=== PATIENT | male | born 1940 | race Caucasian/White ===

== ENCOUNTER 2016-06-07 10:55 | Observation (INO) | payer MEDICARE, OTHER ==
[2016-06-07] MEDS ORDERED: NITROGLYCERIN OINT 1 INCH/GM PACKET TOPICAL STA (11:26)
--- NOTE | 2016-06-07 11:27 | ED ---
General Adult HPI - General Chief complaint: Chest Pain Stated complaint: Chest Pain Time Seen by Provider: 06/07/16 11:00 Source: patient, RN notes reviewed Mode of arrival: EMS Limitations: no limitations - History of Present Illness Initial comments: This 76-year-old male with past medical history significant for bypass surgery back in 1995 per patient also states he had an [place] has high cholesterol and high blood pressure. Patient states early this morning started having some chest pain and some difficulty breathing. When EMS arrived they gave the patient a nitroglycerin which took his pain away completely. Patient currently states he has a 1 out of 10 pain at this time. Patient does not know if this pain feels like his previous heart attack pain because he cannot remember what that felt like. Patient denies any recent fever or chills. Patient states she was recently admitted to the hospital for pneumonia and discharged. Patient denies any palpitations. Patient denies abdominal pain patient denies nausea vomiting or diarrhea. Patient denies any headache patient denies any numbness or weakness. Patient denies any lightheadedness or dizziness or near syncopal episode. - Related Data Home Medications Medication Instructions Recorded Confirmed ALPRAZolam [Xanax] 0.5 mg PO QID 02/13/15 06/07/16 DULoxetine HCL [Cymbalta] 60 mg PO DAILY 02/13/15 06/07/16 Memantine [Namenda] 10 mg PO BID@0700,1700 02/13/15 06/07/16 Simvastatin [Zocor] 80 mg PO HS 02/13/15 06/07/16 traMADol HCl [Ultram] 50 mg PO Q6H PRN 02/13/15 06/07/16 Acetaminophen [Tylenol] 650 mg PO Q4H PRN 06/07/16 06/07/16 Bisacodyl [Dulcolax] 10 mg RECTAL DAILY PRN 06/07/16 06/07/16 Budesonide/Formoterol Fumarate 2 puff INHALATION RT-BID@0800,1700 06/07/1606/07 [Symbicort 160-4.5 Mcg Inhaler] Carvedilol [Coreg] 3.125 mg PO BID@0800,1700 06/07/16 06/07/16 Donepezil [Aricept] 10 mg PO HS 06/07/16 06/07/16 Ergocalciferol [Vitamin D2] 50,000 unit PO Q30D@1700 06/07/16 06/07/16 Famotidine [Pepcid] 20 mg PO BID@0800,1700 06/07/16 06/07/16 Furosemide [Lasix] 20 mg PO DAILY@0800 06/07/16 06/07/16 Ipratropium-Albuterol Nebulize 3 ml INHALATION RT-Q6H 06/07/16 06/07/16 [Duoneb 0.5 mg-3 mg/3 ml Soln] Magnesium Hydroxide [Milk of 2,400 mg PO DAILY PRN 06/07/16 06/07/16 Magnesia] Melatonin 5 mg PO HS 06/07/16 06/07/16 Na Phos,M-B/Na Phos,Di-Ba [Fleet 133 ml RECTAL DAILY PRN 06/07/16 06/07/16 Adult] Potassium Chloride [Klor-Con 10] 10 meq PO DAILY@0800 06/07/16 06/07/16 Allergies Allergy/AdvReac Type Severity Reaction Status Date / Time aspirin Allergy Unknown Verified 06/07/16 12:18 Review of Systems ROS Statement: Those systems with pertinent positive or pertinent negative responses have been documented in the HPI. ROS Other: All systems not noted in ROS Statement are negative. Past Medical History Past Medical History: Coronary Artery Disease (CAD), Chest Pain / Angina, COPD, Hyperlipidemia, Hypertension, Myocardial Infarction ([place]) Additional Past Medical History / Comment(s): ANEURYSM, History of Any Multi-Drug Resistant Organisms: None Reported Past Surgical History: Coronary Bypass/CABG Additional Past Surgical History / Comment(s): NECK SURGERY Past Psychological History: Anxiety, Depression Smoking Status: Current every day smoker Past Alcohol Use History: None Reported Past Drug Use History: None Reported General Exam - General Exam Comments Initial Comments: GENERAL: Patient is well-developed and well-nourished. Patient is nontoxic and well- hydrated and is in mild distress. ENT: Neck is soft and supple. No significant lymphadenopathy is noted. Oropharynx is clear. Moist mucous membranes. Neck has full range of motion without eliciting any pain. EYES: The sclera were anicteric and conjunctiva were pink and moist. Extraocular movements were intact and pupils were equal round and reactive to light. Eyelids were unremarkable. PULMONARY: Patient has diminished breath sounds throughout CARDIOVASCULAR: There is a regular rate and rhythm without any murmurs gallops or rubs. ABDOMEN: Soft and nontender with normal bowel sounds. No palpable organomegaly was noted. There is no palpable pulsatile mass. SKIN: Skin is clear with no lesions or rashes and otherwise unremarkable. NEUROLOGIC: Patient is alert and oriented x3. Cranial nerves II through XII are grossly intact. Motor and sensory are also intact. Normal speech, volume and content. Symmetrical smile. MUSCULOSKELETAL: Normal extremities with adequate strength and full range of motion. No lower extremity swelling or edema. No calf tenderness. LYMPHATICS: No significant lymphadenopathy is noted PSYCHIATRIC: Normal psychiatric evaluation. Limitations: no limitations Course Vital Signs 06/07/16 06/07/16 06/07/16 11:17 11:58 12:57 Temperature 97.8 F 98 F Pulse Rate 100 95 100 Respiratory 18 22 20 Rate Blood Pressure 128/60 140/70 126/69 O2 Sat by Pulse 95 96 95 Oximetry Medical Decision Making - Medical Decision Making EKG shows a normal sinus rhythm at 94 bpm DE interval is 164 QRS is 84 QT interval 342 QTC is 427. EKG is not have any ST segment elevation or depression. No T-wave abdomen is noted. Chest x-ray shows no acute normalities. I started the patient heparin because his symptoms were completely resolved with one nitroglycerin in route. And he has significant risk factors. I admitted the patient I spoke with Dr. Ghotra she agreed to admit the patient. I started the patient on heparin aspirin and nitro paste on the floor. I consult cardiology. - Lab Data Result diagrams: 06/07/16 11:35 06/07/16 11:35 Lab Results 06/07/16 06/07/16 06/07/16 Range/Units 11:35 11:35 11:35 WBC 6.8 (3.8-10.6) k/uL RBC 4.09 L (4.30-5.90) m/uL Hgb 11.9 L (13.0-17.5) gm/dL Hct 35.8 L (39.0-53.0) % MCV 87.5 (80.0-100.0) fL MCH 29.0 (25.0-35.0) pg MCHC 33.2 (31.0-37.0) g/dL RDW 13.9 (11.5-15.5) % Plt Count 209 (150-450) k/uL Neutrophils % 73 % Lymphocytes % 16 % Monocytes % 7 % Eosinophils % 3 % Basophils % 0 % Neutrophils # 4.9 (1.3-7.7) k/uL Lymphocytes # 1.1 (1.0-4.8) k/uL Monocytes # 0.4 (0-1.0) k/uL Eosinophils # 0.2 (0-0.7) k/uL Basophils # 0.0 (0-0.2) k/uL PT (9.0-12.0) sec INR (<1.1) APTT (22.0-30.0) sec Sodium 139 (137-145) mmol/L Potassium 4.2 (3.5-5.1) mmol/L Chloride 100 (98-107) mmol/L Carbon Dioxide 28 (22-30) mmol/L Anion Gap 11 mmol/L BUN 15 (9-20) mg/dL Creatinine 0.98 (0.66-1.25) mg/dL Est GFR (MDRD) Af Amer >60 (>60 ml/min/1.73 sqM) Est GFR (MDRD) Non-Af >60 (>60 ml/min/1.73 sqM) Glucose 115 H (74-99) mg/dL Calcium 8.8 (8.4-10.2) mg/dL Magnesium 1.8 (1.6-2.3) mg/dL Total Bilirubin 1.1 (0.2-1.3) mg/dL AST 19 (17-59) U/L ALT 28 (21-72) U/L Alkaline Phosphatase 61 (38-126) U/L Total Creatine Kinase 36 L (55-170) U/L CK-MB (CK-2) 1.3 (0.0-2.4) ng/mL CK-MB (CK-2) Rel Index 3.6 Troponin I <0.012 (0.000-0.034) ng/mL Total Protein 6.4 (6.3-8.2) g/dL Albumin 3.6 (3.5-5.0) g/dL 06/07/16 Range/Units 11:35 WBC (3.8-10.6) k/uL RBC (4.30-5.90) m/uL Hgb (13.0-17.5) gm/dL Hct (39.0-53.0) % MCV (80.0-100.0) fL MCH (25.0-35.0) pg MCHC (31.0-37.0) g/dL RDW (11.5-15.5) % Plt Count (150-450) k/uL Neutrophils % % Lymphocytes % % Monocytes % % Eosinophils % % Basophils % % Neutrophils # (1.3-7.7) k/uL Lymphocytes # (1.0-4.8) k/uL Monocytes # (0-1.0) k/uL Eosinophils # (0-0.7) k/uL Basophils # (0-0.2) k/uL PT 11.7 (9.0-12.0) sec INR 1.2 (<1.1) APTT 23.7 (22.0-30.0) sec Sodium (137-145) mmol/L Potassium (3.5-5.1) mmol/L Chloride (98-107) mmol/L Carbon Dioxide (22-30) mmol/L Anion Gap mmol/L BUN (9-20) mg/dL Creatinine (0.66-1.25) mg/dL Est GFR (MDRD) Af Amer (>60 ml/min/1.73 sqM) Est GFR (MDRD) Non-Af (>60 ml/min/1.73 sqM) Glucose (74-99) mg/dL Calcium (8.4-10.2) mg/dL Magnesium (1.6-2.3) mg/dL Total Bilirubin (0.2-1.3) mg/dL AST (17-59) U/L ALT (21-72) U/L Alkaline Phosphatase (38-126) U/L Total Creatine Kinase (55-170) U/L CK-MB (CK-2) (0.0-2.4) ng/mL CK-MB (CK-2) Rel Index Troponin I (0.000-0.034) ng/mL Total Protein (6.3-8.2) g/dL Albumin (3.5-5.0) g/dL Disposition Clinical Impression: Unstable angina pectoris Disposition: ADMITTED IP TO THIS [facility] Time of Disposition: 13:05
[2016-06-07 11:44] LABS: Basophils % (A) 0 %; CHCM 33.2; Eosinophils # (A) 0.2 k/uL (0-0.7); Eosinophils % (A) 3 %; HCT 35.8 % (39.0-53.0); HDW 2.81; HGB 11.9 gm/dL (13.0-17.5); Luc # (Auto) 0.14; Luc % (Auto) 2; Lymphocytes # (A) 1.1 k/uL (1.0-4.8); Lymphocytes % (A) 16 %; MCHC 33.2 g/dL (31.0-37.0); MCV 87.5 fL (80.0-100.0); Mean Platelet Volume 6.5; Monocytes # (A) 0.4 k/uL (0-1.0); Monocytes % (A) 7 %; Neutrophils # (A) 4.9 k/uL (1.3-7.7); Neutrophils % (A) 73 %; RBC 4.09 m/uL (4.30-5.90); RDW 13.9 % (11.5-15.5); WBC 6.8 k/uL (3.8-10.6); WBC (Perox) 6.94
[2016-06-07 11:52] LABS: INR 1.2 (<1.1); Partial Thromboplastin Time 23.7 sec (22.0-30.0); Prothrombin Time 11.7 sec (9.0-12.0)
[2016-06-07 11:56] LABS: ALT 28 U/L (21-72); AST 19 U/L (17-59); Alkaline Phosphatase 61 U/L (38-126); Anion Gap 11 mmol/L; Blood Urea Nitrogen 15 mg/dL (9-20); Calcium 8.8 mg/dL (8.4-10.2); Carbon Dioxide 28 mmol/L (22-30); Chloride 100 mmol/L (98-107); Glucose 115 mg/dL (74-99); Magnesium 1.8 mg/dL (1.6-2.3); Non-African American GFR(MDRD) >60 (>60 ml/min/1.73 sqM); Potassium 4.2 mmol/L (3.5-5.1); Sodium 139 mmol/L (137-145); Total Bilirubin 1.1 mg/dL (0.2-1.3); Total Protein 6.4 g/dL (6.3-8.2)
--- NOTE | 2016-06-07 12:02 | XR ---
EXAMINATION TYPE: XR chest 2V DATE OF EXAM: 06/07/2016 11:50 AM COMPARISON: 01/10/2016 HISTORY: 76-year-old male with chest pain TECHNIQUE: Frontal and lateral views FINDINGS: Heart is normal size. Mild elongation of the thoracic aorta. Band of atelectasis at the right mid to lower lung. Mild right apical pleural parenchymal scarring is unchanged. Hyperinflation with flatteni ng of the hemidiaphragms. No consolidation or pleural effusion. ACDF hardware. Median sternotomy wire s are present with postoperative clips in the mediastinum. IMPRESSION: COPD with a band of atelectasis of the right lower lung. Otherwise, no acute process seen.
[2016-06-07 12:06] LABS: Creatine Kinase 36 U/L (55-170)
[2016-06-07 12:19] LABS: Creatine Kinase MB 1.3 ng/mL (0.0-2.4); Troponin I <0.012 ng/mL (0.000-0.034)
[2016-06-07] MEDS ORDERED: HEPARIN SODIUM,PORCINE 5,000 UNIT/ML 1 ML VIAL IV ONE (13:03)
[2016-06-07] MEDS ORDERED: NITROGLYCERIN SL TABS 0.4 MG TAB SUBLINGUAL PRN (13:03)
[2016-06-07] MEDS ORDERED: HEPARIN SODIUM,PORCINE/D5W PMX 25,000 UNIT in DEXTROSE/WATER 1 500ML.BAG IV SCH (13:15)
[2016-06-07] MEDS ORDERED: SODIUM CHLORIDE 0.9% 1,000 ML IV STA (13:31)
[2016-06-07 18:10] LABS: Creatine Kinase 40 U/L (55-170)
[2016-06-07 18:23] LABS: Creatine Kinase MB 1.3 ng/mL (0.0-2.4); Troponin I <0.012 ng/mL (0.000-0.034)
[2016-06-07] MEDS ORDERED: NA PHOS,M-B/NA PHOS,DI-BA 133 ML ENEMA RECTAL PRN (20:38)
[2016-06-07] MEDS ORDERED: MAGNESIUM HYDROXIDE 2,400 MG/10 ML CUP PO PRN (20:38)
[2016-06-07] MEDS ORDERED: BISACODYL 10 MG SUPP RECTAL PRN (20:38)
[2016-06-07] MEDS ORDERED: traMADol 50 MG TAB PO PRN (20:38)
[2016-06-07] MEDS ORDERED: ACETAMINOPHEN TAB 325 MG TAB PO PRN (20:38)
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
--- NOTE | 2016-06-07 21:31 | CONS ---
DATE OF CONSULTATION: Mr. Galan is a 76-year-old male with known history of coronary artery disease, status post coronary artery bypass grafting in 1995, history of hypertension, hyperlipidemia, who presented with symptoms of chest discomfort. He has been having the discomfort on and off for a while, but because of persistent symptoms today he came into the emergency room. The discomfort was in the middle of the chest and did not radiate. Patient denies any significant dizziness, palpitation. He is not active physically, has some dyspnea on exertion, appears to have an element of dementia. He has no clear PND, orthopnea, or significant peripheral edema. His coronary risk factors are remarkable for hypertension, hyperlipidemia. He stopped smoking a few years ago. His medications include: 1. Coreg 3.125 mg twice a day. 2. Cymbalta. 3. Aricept. 4. Lasix 20 mg daily. 5. Namenda. 6. Simvastatin 80 mg daily. 7. Dulcolax. 8. Tylenol. REVIEW OF SYSTEMS: RESPIRATORY SYSTEM: He has history of chronic obstructive lung disease, he has a chronic cough but unchanged. GI system: No recent GI bleeding. No peptic ulcer disease. system: No dysuria or hematuria. Nervous system: No history of stroke or seizure. PHYSICAL EXAMINATION: A 76-year-old male, alert, oriented to apparent distress. Blood pressure 124/70 with a heart in the 90s. HEAD: Normocephalic. EYES: Sclerae anicteric. NECK: Good upstroke. No bruits. No jugular venous distention. LUNGS: Clear to auscultation. HEART: Regular rate and rhythm. S1, S2, no S3, with systolic murmur heard at the base. No diastolic murmur. No rub. ABDOMEN: Soft, nontender, positive bowel sounds. No organomegaly. EXTREMITIES: Intact distal pulses. Lab data revealed troponin less than 0.012 for one sample, BUN, creatinine of 15 and 0.98. Hemoglobin of 11.9. EKG revealed sinus mechanism, normal axis and intervals, no acute changes. Chest x-ray revealed no acute infiltrate with COPD changes and atelectasis in the right lower lung. IMPRESSION: 1. Chest discomfort of unclear etiology has some atypical feature for ischemic disease in a patient with multiple coronary risk factors, rule out obstructive disease. 2. Hypertension. 3. Status post coronary artery bypass grafting. 4. Hyperlipidemia. RECOMMENDATIONS: I would recommend to obtain serial enzymes, we will obtain an evaluation of his left ventricular systolic function by echocardiography. If there are abnormal enzymatic changes, then I would recommend to proceed with cardiac catheterization. Otherwise, we will proceed with stress testing. Thank you for this consult. We will follow with you.
[2016-06-07] MEDS: DONEPEZIL 10 MG TAB PO SCH (22:11)
[2016-06-07] MEDS: NITROGLYCERIN OINT 1 INCH/GM PACKET TOPICAL SCH ×2 (22:11→22:12)
[2016-06-07] MEDS: ALPRAZolam 0.5 MG TAB PO SCH (22:11)
[2016-06-07] MEDS: MELATONIN 5 MG TABLET PO SCH (22:11)
[2016-06-07] MEDS: CARVEDILOL 3.125 MG TAB PO SCH (22:12)
[2016-06-07 23:24] LABS: Creatine Kinase 34 U/L (55-170)
[2016-06-07 23:37] LABS: Creatine Kinase MB 1.2 ng/mL (0.0-2.4); Troponin I <0.012 ng/mL (0.000-0.034)
[2016-06-08] MEDS ORDERED: HEPARIN SODIUM,PORCINE 5,000 UNIT/ML 1 ML VIAL IV PRN (01:02)
[2016-06-08] MEDS: NITROGLYCERIN OINT 1 INCH/GM PACKET TOPICAL SCH (06:15)
[2016-06-08] MEDS ORDERED: AMINOPHYLLINE 500 MG/20 ML VIAL IV PRN (07:29)
[2016-06-08] MEDS ORDERED: REGADENOSON 0.4 MG/5 ML SYRINGE IV ONE (07:29)
[2016-06-08] MEDS: IPRATROPIUM-ALBUTEROL 3 ML NEB INHALATION SCH ×4 (08:17→19:44)
[2016-06-08 08:50] LABS: Anion Gap 8 mmol/L; Blood Urea Nitrogen 18 mg/dL (9-20); Calcium 8.9 mg/dL (8.4-10.2); Carbon Dioxide 30 mmol/L (22-30); Chloride 99 mmol/L (98-107); Cholesterol 163 mg/dL (<200); Glucose 125 mg/dL (74-99); HDL Cholesterol 54 mg/dL (40-60); Non-African American GFR(MDRD) >60 (>60 ml/min/1.73 sqM); Potassium 4.4 mmol/L (3.5-5.1); Sodium 137 mmol/L (137-145); Triglycerides 165 mg/dL (<150)
[2016-06-08] MEDS ORDERED: ASPIRIN 325 MG TAB PO SCH (09:00)
--- NOTE | 2016-06-08 09:00 | PN ---
Mr. Galan is a 76-year-old male with known history of chronic obstructive ( ) who presented with symptoms of chest discomfort. He has history of coronary artery bypass grafting. He is feeling better today. He has mild discomfort. No dizziness. No palpitation. He denies any nausea. He had a recent right lower lobe pneumonia. He has a history of baseline dementia. He continues to be on Lipitor 40 mg daily, Coreg 3.125 mg twice a day, Lasix, heparin. PHYSICAL EXAMINATION: Blood pressure 160/70 with the heart rate in the 90s, afebrile. LUNGS: Clear. HEART: Regular rate and rhythm. S1, S2, no S3, with systolic murmur. No diastolic murmur. ABDOMEN: Soft, nontender. EXTREMITIES: No edema. Lab data revealed troponin less than 0.012. BUN and creatinine 15 and 0.98. IMPRESSION: 1. Chest discomfort, atypical for ischemic heart disease in a patient with known history of coronary artery disease, status post coronary artery bypass grafting. 2. History of chronic obstructive lung disease. 3. Dementia. 4. Hypertension. 5. Hyperlipidemia. RECOMMENDATION: I will stop the heparin, proceed with a stress myocardial perfusion imaging. If there is evidence of significant ischemia, then coronary angiography may be needed. Otherwise, I will favor maximizing his medical therapy in view of his history of dementia.
[2016-06-08] MEDS: FAMOTIDINE 20 MG TAB PO SCH ×2 (10:13→17:43)
[2016-06-08] MEDS: POTASSIUM CHLORIDE ER 10 MEQ TAB.ER.PRT PO SCH (10:13)
[2016-06-08] MEDS: FUROSEMIDE 20 MG TAB PO SCH (10:13)
[2016-06-08] MEDS: MEMANTINE 10 MG TAB PO SCH ×2 (10:13→17:43)
[2016-06-08] MEDS: ALPRAZolam 0.5 MG TAB PO SCH ×4 (10:13→20:51)
[2016-06-08] MEDS: DULoxetine HCL 60 MG CAPSULE.DR PO SCH (10:13)
[2016-06-08] MEDS: ATORVASTATIN 40 MG TAB PO SCH (10:13)
--- NOTE | 2016-06-08 10:25 | ECHOF ---
Referral Reason:Chest pain MEASUREMENTS -------- HEIGHT: 177.8 cm WEIGHT: 104.3 kg BP: 145/76 RVIDd: 3.4 cm (< 3.3) IVSd: 1.6 cm (0.6 - 1.1) LVIDd: 4.6 cm (3.9 - 5.3) LVPWd: 1.6 cm (0.6 - 1.1) IVSs: 1.9 cm LVIDs: 3.2 cm LVPWs: 1.7 cm LA Diam: 3.0 cm (2.7 - 3.8) LAESV Index (A-L): 12.36 ml/m Ao Diam: 3.7 cm (2.0 - 3.7) MV EXCURSION: 22.907 mm (> 18.000) MV EF SLOPE: 347 mm/s (70 - 150) EPSS: 1.7 cm MV E Josh: 0.44 m/s MV DecT: 174 ms MV A Josh: 0.72 m/s MV E/A Ratio: 0.61 AV maxP.87 mmHg AV meanP.05 mmHg FINDINGS -------- This was a technically adequate study. The left ventricular size is normal. There is moderate concentric left ventricular hypertrophy. Overall left ventricular systolic function is normal with, an EF between 55 - 60 %. The right ventricle is normal in size. Normal LA size by volume 22+/-6 ml/m2. The right atrium is normal in size. 1.5mg of Definity was utilized for enhancement of images Aortic valve is trileaflet and is mildly thickened. There is mild aortic stenosis present. Peak/mean gradient across the Aortic Valve is 13.87mmHg / 6.05mmHg. Mild mitral annular calcification present. The tricuspid valve appears structurally normal. The pulmonic valve was not well visualized. The aortic root is dilated measuring 3.7cm. Normal inferior vena cava with normal inspiratory collapse consistent with estimated right atrial pressure of 5 mmHg. There is no pericardial effusion. CONCLUSIONS -------- 1. This was a technically adequate study. 2. Peak/mean gradient across the Aortic Valve is 13.87mmHg / 6.05mmHg. 3. Mild mitral annular calcification present. 4. The tricuspid valve appears structurally normal. 5. The pulmonic valve was not well visualized. 6. The aortic root is dilated measuring 3.7cm. 7. Normal inferior vena cava with normal inspiratory collapse consistent with estimated right atrial pressure of 5 mmHg. 8. There is no pericardial effusion. 9. The left ventricular size is normal. 10. There is moderate concentric left ventricular hypertrophy. 11. Overall left ventricular systolic function is normal with, an EF between 55 - 60 %. 12. The right ventricle is normal in size. 13. Normal LA size by volume 22+/-6 ml/m2. 14. 1.5mg of Definity was utilized for enhancement of images 15. Aortic valve is trileaflet and is mildly thickened. 16. There is mild aortic stenosis present. SUPERVISOR/PORT DIRECTOR: Brinda Hoff RDCS
[2016-06-08] MEDS: SYMBICORT 160-4.5 MCG INHALER INHALATION SCH ×2 (12:38→19:45)
[2016-06-08] MEDS: CARVEDILOL 3.125 MG TAB PO SCH ×2 (17:38→17:42)
--- NOTE | 2016-06-08 20:14 | P.PN ---
Subjective This is a pleasant 76-year-old gentleman patient of Dr. Kanu Wood He has underlying history of COPD, hypertension, depression, dementia, advanced, hyperlipidemia hypertension CAD with prior CABG who currently lives at [facility] for long-term residency recently admitted at [facility] 05/21/2016 secondary to fever and hypoxemia was negative for influenza at that time. He also had right-sided pneumonia requiring ICU admission and was transferred back to [facility] at that time after stabilization. He dis not required any changes in his diet, swallowing eval was performed to 03/28/2017 without any evidence off aspiration or penetration He was transferred to the emergency room secondary to chest pain and Route he was given some nitroglycerin which was relieved by the nitroglycerin. Patient cannot elaborate symptoms any further, patient cannot recollect what transpired or symptoms that he had necessitating his transfer to the emergency room. Next Emergency room EKG shows normal sinus rhythm heart rate 94, no ST st segment elevation, no T-wave inversion patient was started on heparin IV, nitro paste, aspirin with consultations cardiology troponins 0.01 2.012 06/08. patient denies chest pain or dysphagia, stress test was scheduled today, patient made Npo for procedure but he got a meal tray and had breakfast, stress test was rescheduled for to [place], patient cannot be relied to for his memory to abstain for procedure, nursing staff made aware Objective - Vital Signs Vital signs: Vital Signs Temp 97.8 F 06/08/16 15:50 Pulse 100 06/08/16 19:56 Resp 18 06/08/16 15:50 BP 115/60 06/08/16 15:50 Pulse Ox 95 06/08/16 15:50 Intake & Output 06/08/16 06/08/16 06/09/16 06:59 18:59 06:59 Intake Total 1145.333 100 Output Total 4 5 Balance 1141.333 -5 100 Intake: IV 440 Heparin Sodium,Porcine/ 220 D5w Pmx 25,000 unit In Dextrose/Water 1 500ml. bag @ 9.59 UNITS/KG/HR 20 mls/hr IV .Q24H [facility] Rx#: [id number] Sodium Chloride 0.9% 1, 220 000 ml @ 20 mls/hr IV . Q24H [facility] Rx#:[id number] Intake, IV Titration 230.333 Amount Heparin Sodium,Porcine/ 230.333 D5w Pmx 25,000 unit In Dextrose/Water 1 500ml. bag @ 9.59 UNITS/KG/HR 20 mls/hr IV .Q24H [facility] Rx#: [id number] Oral 475 100 Output: Stool 4 5 Other: Voiding Method Urinal Bedside Commode Diaper Urinal Incontinent Diaper Incontinent # Voids 3 3 # Bowel Movements 1 1 - Constitutional General appearance: Present: cooperative, obese - EENT Eyes: Present: anicteric sclerae, EOMI, poor dentition ENT: Present: hard of hearing, NA/AT, normal oropharynx - Neck Neck: Present: normal ROM Thyroid: bilateral: normal size - Respiratory Respiratory: bilateral: CTA, negative: diminished, dullness, rales, rhonchi, wheezing, prolonged expiration, prolonged inspiration - Cardiovascular Rhythm: regular Heart sounds: normal: S1, S2 Abnormal Heart Sounds: Absent: systolic murmur, diastolic murmur, rub, S3 Gallop , S4 Gallop, click, other - Gastrointestinal General gastrointestinal: Present: normal bowel sounds, soft - Integumentary Integumentary: Present: normal, normal turgor - Neurologic Neurologic: Present: CNII-XII intact - Musculoskeletal Musculoskeletal: Present: strength equal bilaterally - Psychiatric Psychiatric: Present: appropriate affect - Labs CBC & Chem 7: 06/07/16 11:35 06/08/16 07:51 Labs: Abnormal Lab Results - Last 24 Hours (Table) 06/07/16 06/07/16 06/08/16 Range/Units 22:51 22:51 07:51 APTT 39.1 H (22.0-30.0) sec Glucose 125 H (74-99) mg/dL Total Creatine Kinase 34 L (55-170) U/L Triglycerides 165 H (<150) mg/dL Laboratory Results - last 24 hr 06/07/16 06/07/16 06/08/16 22:51 22:51 07:34 APTT 39.1 H Sodium Potassium Chloride Carbon Dioxide Anion Gap BUN Creatinine Est GFR (MDRD) Af Amer Est GFR (MDRD) Non-Af Glucose Calcium Total Creatine Kinase 34 L CK-MB (CK-2) 1.2 CK-MB (CK-2) Rel Index 3.5 Troponin I <0.012 Triglycerides Cholesterol LDL Cholesterol, Calc HDL Cholesterol C. difficile (EIA) Intrp Negative 06/08/16 07:51 APTT Sodium 137 Potassium 4.4 Chloride 99 Carbon Dioxide 30 Anion Gap 8 BUN 18 Creatinine 0.99 Est GFR (MDRD) Af Amer >60 Est GFR (MDRD) Non-Af >60 Glucose 125 H Calcium 8.9 Total Creatine Kinase CK-MB (CK-2) CK-MB (CK-2) Rel Index Troponin I Triglycerides 165 H Cholesterol 163 LDL Cholesterol, Calc 76 HDL Cholesterol 54 C. difficile (EIA) Intrp Assessment and Plan Plan: 1. Symptoms of chest pain with underlying history of CAD, patient was pointing to the right sternal region not quite typical for unstable angina, with his underlying CAD with prior CABG, patient will be observed with telemetry our surveillance for telemetry, troponins and echocardiogram was requested with consultations made to cardiology. Biomarkers for troponins EKG will be obtained , an echocardiogram. His continue on IV heparin, Nitropaste and aspirin home medications include EILEEN inhibitor his beta blockers and maintain, await nuclear stress noemi on 06/09 2. Recent right lower lobe pneumonia with sepsis SIRS resolved no difficulties at this time, recent influenza negative, modified barium swallow eval performed during the last admission febrile 2016 failed to reveal any abnormalities, /3 3 COPD without any exacerbation continue nebulized be dural Atrovent 4. CAD with prior CABG 96 for vessel disease on Coreg Lipitor patient will be started on losartan 25 mg daily 5. Dementia on Namenda and Aricept no changes were made 6. Hyperlipidemia on Lipitor 40 7. Impaired balance for which patient is requiring wheelchair for community ambulation 8. Chronic hypoxemia on maintenance 2 L nasal cannula [place] 9. GERD on maintenance Pepcid next 10. Depression on Cymbalta 12. DVT prophylaxis on IV heparin 12. Chronic anemia stable without any ongoing GI or losses 14. GI prophylaxis on maintenance Pepcid CODE STATUS full Anticipate discharge in 24 hours should cardiology cleared him for his coronary disease
[2016-06-08] MEDS: DONEPEZIL 10 MG TAB PO SCH (20:51)
[2016-06-08] MEDS: MELATONIN 5 MG TABLET PO SCH (20:51)
[2016-06-09] MEDS: IPRATROPIUM-ALBUTEROL 3 ML NEB INHALATION SCH ×3 (01:37→13:37)
[2016-06-09] MEDS: SYMBICORT 160-4.5 MCG INHALER INHALATION SCH (08:21)
[2016-06-09 08:23] VITALS: RESP 18
--- NOTE | 2016-06-09 08:42 | PN ---
Wu Galan is a 76-year-old male who presented with symptoms of chest discomfort. He has history of coronary artery disease, status post coronary artery bypass grafting as well as history of dementia. His cardiac enzymes were negative. He ate yesterday so the stress could not be done. He is feeling better. He has no chest pain today. He has no dizziness. No palpitation. He has no nausea. No cough. He continues to be on Lipitor 40 mg daily, Coreg 3.125 mg twice a day, Aricept 10 mg daily. Furosemide and potassium. HE IS NOT ON ASPIRIN BECAUSE OF AN ALLERGY. PHYSICAL EXAMINATION: Blood pressure 130/70 with a heart in the 70s. LUNGS: Clear. HEART: Regular rate and rhythm. S1, S2, no S3, no rub. ABDOMEN: Soft, nontender. EXTREMITIES: No edema. Echocardiogram performed during this admission revealed a preserved left ventricular size systolic function with no significant valvular abnormality. IMPRESSION: 1. Chest discomfort of unclear etiology in a patient with known history of coronary artery disease. 2. History of dementia. 3. Hypertension. 4. Hyperlipidemia. 5. Chronic obstructive lung disease. RECOMMENDATION: Will proceed with a myocardial perfusion imaging. If there is no evidence of significant inducible ischemia, then I will continue medical therapy. I would expect he should be able to be discharged home soon.
[2016-06-09] MEDS ORDERED: REGADENOSON 0.4 MG/5 ML SYRINGE IV ONE (09:39)
[2016-06-09] MEDS: ATORVASTATIN 40 MG TAB PO SCH (11:13)
[2016-06-09] MEDS: DULoxetine HCL 60 MG CAPSULE.DR PO SCH (11:13)
[2016-06-09] MEDS: FUROSEMIDE 20 MG TAB PO SCH (11:13)
[2016-06-09] MEDS: ALPRAZolam 0.5 MG TAB PO SCH ×2 (11:13→15:51)
[2016-06-09] MEDS: CARVEDILOL 3.125 MG TAB PO SCH (11:13)
[2016-06-09] MEDS: MEMANTINE 10 MG TAB PO SCH (11:13)
[2016-06-09] MEDS: POTASSIUM CHLORIDE ER 10 MEQ TAB.ER.PRT PO SCH (11:13)
[2016-06-09] MEDS: FAMOTIDINE 20 MG TAB PO SCH (11:14)
[2016-06-09 12:41] VITALS: BP 121/68; TEMP 98.5
--- NOTE | 2016-06-09 12:44 | NM ---
EXAMINATION TYPE: NM stress lexiscan cardiolite DATE OF EXAM: 06/09/2016 11:16 AM COMPARISON: Chest x-ray one June 2016 HISTORY: Chest pain TECHNIQUE: After the intravenous administration of 10.0 mCi Tc 99m Sestamibi - Cardiolite resting SP ECT images acquired 45 minutes post injection. The patient received 0.4mg Lexiscan, 26.0 mCi Tc 99m Sestamibi - Stress images obtained [address] injection FINDINGS: Review of stress and rest SPECT images demonstrates no distinct perfusion abnormality. Gated analysi s shows normal wall motion with an estimated left ventricular ejection fraction of 39 %. There is adelina e mild decreased radiotracer uptake along the inferior wall the left ventricle but more so on rest im ages than on stress images. IMPRESSION: No scintigraphic evidence for reversible ischemia. Additional findings above. Abnormal low cardiac ej ection fraction.
--- NOTE | 2016-06-09 12:45 | EST ---
DATE OF SERVICE: 06/09/2016 AGE: 76Y SEX: M HT: 5'10" WT: 207 lbs. Protocol Jh: Other: Lexiscan Cardiolite Stage: Dur. of Exercise: *Heart Rate Blood Pressure *Rest: 70 Rest: 104/84 * *Max. Achieved: 98 Maximum BP: 117/60 85% PMHR: 100% PMHR: *METS: INDICATIONS: MEDICATIONS: The patient was given Lexiscan injection over a period of 15 seconds. Peak heart rate of 98 was achieved. Maximum blood pressure of 117/60 mmHg was noted. Resting EKG shows normal sinus rhythm with normal ME interval and QRS duration and normal ST-T waves. No ST segment depression suggestive of ischemia is noted. The results of the nuclear study will follow.
--- NOTE | 2016-06-09 13:12 | P.DS ---
Providers Date of admission: 06/07/16 13:05 Expected date of discharge: 06/09/16 Attending physician: Gladys Ghotra Primary care physician: Souleymane Kanu [place] Hospital Course: This is a pleasant 76-year-old gentleman patient of Dr. Kanu Wood He has underlying history of COPD, hypertension, depression, dementia, advanced, hyperlipidemia hypertension CAD with prior CABG who currently lives at [facility] for long-term residency recently admitted at [facility] 05/21/2016 secondary to fever and hypoxemia was negative for influenza at that time. He also had right-sided pneumonia requiring ICU admission and was transferred back to [facility] at that time after stabilization. He dis not required any changes in his diet, swallowing eval was performed to 03/28/2017 without any evidence off aspiration or penetration He was transferred to the emergency room secondary to chest pain and Route he was given some nitroglycerin which was relieved by the nitroglycerin. Patient cannot elaborate symptoms any further, patient cannot recollect what transpired or symptoms that he had necessitating his transfer to the emergency room. Next Emergency room EKG shows normal sinus rhythm heart rate 94, no ST st segment elevation, no T-wave inversion patient was started on heparin IV, nitro paste, aspirin with consultations cardiology troponins 0.01 2.012 06/08. patient denies chest pain or dysphagia, stress test was scheduled today, patient made Npo for procedure but he got a meal tray and had breakfast, stress test was rescheduled for to [place], patient cannot be relied to for his memory to abstain for procedure, nursing staff made aware FINAL DIAGNOSIS Plan: 1. Symptoms of chest pain with underlying history of CAD, patient was pointing to the right sternal region not quite typical for unstable angina, with his underlying CAD with prior CABG, patient will be observed with telemetry our surveillance for telemetry, troponins and echocardiogram was requested with consultations made to cardiology. Biomarkers for troponins EKG will be obtained , an echocardiogram. His continue on IV heparin, Nitropaste and aspirin home medications include EILEEN inhibitor his beta blockers and maintain, await nuclear stress test on 06/09 showed no stress induced ischemia. ef 39%. cleared by cardiology, no medication changes 2. Recent right lower lobe pneumonia with sepsis SIRS resolved no difficulties at this time, recent influenza negative, modified barium swallow eval performed during the last admission febrile 2016 failed to reveal any abnormalities, /3 3 COPD without any exacerbation continue nebulized be dural Atrovent 4. CAD with prior CABG 96 for vessel disease on Coreg Lipitor patient will be started on losartan 25 mg daily 5. Dementia on Namenda and Aricept no changes were made 6. Hyperlipidemia on Lipitor 40 7. Impaired balance for which patient is requiring wheelchair for community ambulation 8. Chronic hypoxemia on maintenance 2 L nasal cannula [place] 9. GERD on maintenance Pepcid next 10. Depression on Cymbalta 12. DVT prophylaxis on IV heparin 12. Chronic anemia stable without any ongoing GI or losses 14. GI prophylaxis on maintenance Pepcid CODE STATUS full Discharge Medication List ALPRAZolam [Xanax] 0.5 mg PO QID 02/13/15 [History] DULoxetine HCL [Cymbalta] 60 mg PO DAILY 02/13/15 [History] Memantine [Namenda] 10 mg PO BID@0700,1700 02/13/15 [History] Simvastatin [Zocor] 80 mg PO HS 02/13/15 [History] Acetaminophen [Tylenol] 650 mg PO Q4H PRN 06/07/16 [History] Bisacodyl [Dulcolax] 10 mg RECTAL DAILY PRN 06/07/16 [History] Budesonide/Formoterol Fumarate [Symbicort 160-4.5 Mcg Inhaler] 2 puff INHALATION RT-BID@0800,1700 06/07/16 [History] Carvedilol [Coreg] 3.125 mg PO BID@0800,1700 06/07/16 [History] Donepezil [Aricept] 10 mg PO HS 06/07/16 [History] Ergocalciferol [Vitamin D2 (DRISDOL)] 50,000 unit PO Q30D@1700 06/07/16 [History ] Famotidine [Pepcid] 20 mg PO BID@0800,1700 06/07/16 [History] Furosemide [Lasix] 20 mg PO DAILY@0800 06/07/16 [History] Ipratropium-Albuterol Nebulize [Duoneb 0.5 mg-3 mg/3 ml Soln] 3 ml INHALATION RT -Q6H 06/07/16 [History] Magnesium Hydroxide [Milk of Magnesia] 2,400 mg PO DAILY PRN 06/07/16 [History] Melatonin 5 mg PO HS 06/07/16 [History] Na Phos,M-B/Na Phos,Di-Ba [Fleet Adult] 133 ml RECTAL DAILY PRN 06/07/16 [ History] Potassium Chloride [Klor-Con 10] 10 meq PO DAILY@0800 06/07/16 [History] Nitroglycerin Sl Tabs [Nitrostat] 0.4 mg SUBLINGUAL Q5M PRN #0 tab 06/09/16 [Rx] traMADol HCl [Ultram] 50 mg PO Q6H PRN #90 tab 06/09/16 [Rx] Patient Condition at Discharge: Stable Plan - Discharge Summary New Discharge Prescriptions: traMADol HCl [Ultram] 50 mg PO Q6H PRN #90 tab PRN Reason: Pain Discharge Medication List ALPRAZolam [Xanax] 0.5 mg PO QID 02/13/15 [History] DULoxetine HCL [Cymbalta] 60 mg PO DAILY 02/13/15 [History] Memantine [Namenda] 10 mg PO BID@0700,1700 02/13/15 [History] Simvastatin [Zocor] 80 mg PO HS 02/13/15 [History] Acetaminophen [Tylenol] 650 mg PO Q4H PRN 06/07/16 [History] Bisacodyl [Dulcolax] 10 mg RECTAL DAILY PRN 06/07/16 [History] Budesonide/Formoterol Fumarate [Symbicort 160-4.5 Mcg Inhaler] 2 puff INHALATION RT-BID@0800,1700 06/07/16 [History] Carvedilol [Coreg] 3.125 mg PO BID@0800,1700 06/07/16 [History] Donepezil [Aricept] 10 mg PO HS 06/07/16 [History] Ergocalciferol [Vitamin D2 (DRISDOL)] 50,000 unit PO Q30D@17006/07/16 [History ] Famotidine [Pepcid] 20 mg PO BID@0800,1700 06/07/16 [History] Furosemide [Lasix] 20 mg PO DAILY@0800 06/07/16 [History] Ipratropium-Albuterol Nebulize [Duoneb 0.5 mg-3 mg/3 ml Soln] 3 ml INHALATION RT -Q6H 06/07/16 [History] Magnesium Hydroxide [Milk of Magnesia] 2,400 mg PO DAILY PRN 06/07/16 [History] Melatonin 5 mg PO HS 06/07/16 [History] Na Phos,M-B/Na Phos,Di-Ba [Fleet Adult] 133 ml RECTAL DAILY PRN 06/07/16 [ History] Potassium Chloride [Klor-Con 10] 10 meq PO DAILY@0800 06/07/16 [History] Nitroglycerin Sl Tabs [Nitrostat] 0.4 mg SUBLINGUAL Q5M PRN #0 tab 06/09/16 [Rx] traMADol HCl [Ultram] 50 mg PO Q6H PRN #90 tab 06/09/16 [Rx] Follow up Appointment(s)/Referral(s): Souleymane Bobby MD [Primary Care Provider] - 1-2 days
[2016-06-09 13:48] VITALS: PULSE 96
== END 2016-06-09 15:22 | disposition home or self-care (01) ==
LOC: EC 10:55 → 3OBS 13:05
PROVIDERS: ADMIT Family Medicine; ATTEND Family Medicine
DX: R07.89 Other chest pain (principal); J44.9 Chronic obstructive pulmonary disease, unspecified; I25.10 Atherosclerotic heart disease of native coronary artery without angina pectoris; Z95.1 Presence of aortocoronary bypass graft; F03.90 Unspecified dementia, unspecified severity, without behavioral disturbance, psychotic disturbance, mood disturbance, and anxiety; E78.5 Hyperlipidemia, unspecified; D64.9 Anemia, unspecified; E78.00 Pure hypercholesterolemia, unspecified; F17.200 Nicotine dependence, unspecified, uncomplicated; F32.9 Major depressive disorder, single episode, unspecified; F41.9 Anxiety disorder, unspecified; I10 Essential (primary) hypertension; I25.2 Old myocardial infarction; K21.9 Gastro-esophageal reflux disease without esophagitis; Z79.899 Other long term (current) drug therapy; Z99.81 Dependence on supplemental oxygen; R26.81 Unsteadiness on feet; R09.02 Hypoxemia; Z79.51 Long term (current) use of inhaled steroids; Z88.6 Allergy status to analgesic agent; Z87.01 Personal history of pneumonia (recurrent)
CPT/HCPCS: 36415; 94640 ×4; 93005; 93017; 80061; 80053; 80048; 82550; 82553; 83735; 85025; 85610; 85730; 87324; 84484; 71020; 78452; 99285; 96365; 96376; G0378 ×3; C8929; A9500; J1644 ×3; Q9957; J2785; 93306; 96366